=== PATIENT | male | born 1955 | race American Indian/Alaskan Native ===

== ENCOUNTER 2020-10-24 07:37 | Day surgery (SDC) | payer OTHER ==
[~2020-10-24] VITALS: Ht 167.6 cm; Wt 80.8 kg
[~2020-10-24 07:37] MED LIST: ATOR10 PO; Aspir 8181 MG PO; DOXA4 PO; FOLI1 PO; Imdur60 MG PO; METTREX2.5 PO; Norco 5-325 Ta1 EACH PO; ZOLP5 PO; ZYRTEC10 M2 PO
== END 2020-10-24 09:24 | disposition home or self-care (01) ==
LOC: ORSCSDS 07:37
PROVIDERS: Internal Medicine Gastroenterology
PROC: 0DBP8ZX Excision of Rectum, Via Natural or Artificial Opening Endoscopic, Diagnostic (ICD-10-PCS; principal; 2020-10-24 09:00)
DX: Z12.11 Encounter for screening for malignant neoplasm of colon (principal); Z86.010 Personal history of colon polyps; D12.8 Benign neoplasm of rectum; K57.30 Diverticulosis of large intestine without perforation or abscess without bleeding; K64.8 Other hemorrhoids; Z87.891 Personal history of nicotine dependence; Z79.82 Long term (current) use of aspirin; Z79.899 Other long term (current) drug therapy
CPT/HCPCS: 88305; J2704; J7120

== ENCOUNTER 2023-08-26 21:47 | Emergency (ER) | payer OTHER ==
[~2023-08-26] VITALS: Ht 167.6 cm; Wt 81.7 kg
[2023-08-26 21:48] VITALS: BP 113/85
[2023-08-26] MEDS ORDERED: SPIR25 (22:05)
[2023-08-26] MEDS ORDERED: OMEP20ER PO (22:06)
[2023-08-26] MEDS ORDERED: AMLO10 PO (22:07)
[2023-08-26] MEDS ORDERED: FentaNYL Citrate 50 MCG/ML 2 ML Injection ONE (22:14)
[2023-08-26] MEDS ORDERED: FentaNYL Citrate 50 MCG/ML 2 ML Injection IV ONE (22:20)
== END 2023-08-26 23:40 | disposition home or self-care (01) ==
LOC: ER 21:47
DX: K42.9 Umbilical hernia without obstruction or gangrene (principal); F17.200 Nicotine dependence, unspecified, uncomplicated; Z88.0 Allergy status to penicillin; Z88.8 Allergy status to other drugs, medicaments and biological substances; Z79.82 Long term (current) use of aspirin; Z79.899 Other long term (current) drug therapy
CPT/HCPCS: 96374; 99284-25; J3010

== ENCOUNTER 2023-09-18 02:36 | Day surgery (SDC) | payer OTHER ==
[~2023-09-18 02:36] MED LIST changes: +AMLO10 PO; +OMEP20ER PO; +SPIR25
[2023-09-18] MEDS ORDERED: Silver Sulfadiazine 1% Cream 25 APPLIC/25 GM Tube ONE (12:45)
== END 2023-09-18 22:40 | disposition home or self-care (01) ==
LOC: WOUND 02:36
DX: T24.232A Burn of second degree of left lower leg, initial encounter (principal); I10 Essential (primary) hypertension; I25.10 Atherosclerotic heart disease of native coronary artery without angina pectoris; Z87.891 Personal history of nicotine dependence; Z88.0 Allergy status to penicillin; Z88.8 Allergy status to other drugs, medicaments and biological substances; Z91.011 Allergy to milk products
CPT/HCPCS: A9270; G0463

== ENCOUNTER 2023-09-24 02:39 | Day surgery (SDC) | payer OTHER ==
[2023-09-24] MEDS ORDERED: Lidocaine HCl 4% Cream 5 GM ONE (15:30)
== END 2023-09-25 22:49 | disposition home or self-care (01) ==
LOC: WOUND 02:39
DX: T24.232A Burn of second degree of left lower leg, initial encounter (principal); I10 Essential (primary) hypertension; I25.10 Atherosclerotic heart disease of native coronary artery without angina pectoris
CPT/HCPCS: A9270

== ENCOUNTER 2023-10-06 02:00 | Day surgery (SDC) | payer OTHER ==
[2023-10-06] MEDS ORDERED: Lidocaine HCl 4% Cream 5 GM ONE (14:15)
== END 2023-10-06 23:16 | disposition home or self-care (01) ==
LOC: WOUND 02:00
DX: T24.232A Burn of second degree of left lower leg, initial encounter (principal); I10 Essential (primary) hypertension
CPT/HCPCS: A9270

== ENCOUNTER 2023-10-27 04:07 | Day surgery (SDC) | payer OTHER ==
[2023-10-27] MEDS ORDERED: Lidocaine HCl 4% Cream 5 GM ONE (14:16)
[2023-10-29] MEDS ORDERED: Loratadine10 MG PO (13:38)
[2023-10-29] MEDS ORDERED: Vitamin D1000 UNI1 PO (13:38)
[2023-10-29] MEDS ORDERED: C COMPLEX1000 M1 PO (13:38)
[2023-10-29] MEDS ORDERED: Saw Palmetto160 MG PO (13:39)
[2023-10-29] MEDS ORDERED: Vitamin B Comple1 EA PO (13:39)
[2023-10-29] MEDS ORDERED: [UNRECOGNIZED DRUG - OTHER] PO (13:39)
[2023-10-29] MEDS ORDERED: ZINC220 PO (13:39)
== END 2023-10-27 23:22 | disposition home or self-care (01) ==
LOC: WOUND 04:07
DX: I87.312 Chronic venous hypertension (idiopathic) with ulcer of left lower extremity (principal); L97.222 Non-pressure chronic ulcer of left calf with fat layer exposed; I25.10 Atherosclerotic heart disease of native coronary artery without angina pectoris; I10 Essential (primary) hypertension; T24.23 Burn of second degree of lower leg; I87.2 Venous insufficiency (chronic) (peripheral); I73.9 Peripheral vascular disease, unspecified
CPT/HCPCS: A9270; G0463

== ENCOUNTER 2023-11-04 00:46 | Day surgery (SDC) | payer OTHER ==
[~2023-11-04 00:46] MED LIST changes: +C COMPLEX1000 M1 PO; +Loratadine10 MG PO; +Saw Palmetto160 MG PO; +Vitamin B Comple1 EA PO; +Vitamin D1000 UNI1 PO; +ZINC220 PO; +[UNRECOGNIZED DRUG - OTHER] PO
== END 2023-11-04 23:16 | disposition home or self-care (01) ==
LOC: WOUND 00:46
DX: T24.232D Burn of second degree of left lower leg, subsequent encounter (principal); L97.222 Non-pressure chronic ulcer of left calf with fat layer exposed; I87.312 Chronic venous hypertension (idiopathic) with ulcer of left lower extremity; I10 Essential (primary) hypertension
CPT/HCPCS: G0463

== ENCOUNTER 2023-11-13 01:56 | Day surgery (SDC) | payer OTHER | END 2023-11-13 23:31 | disposition home or self-care (01) | LOC: WOUND 01:56 | DX: T24.002A Burn of unspecified degree of unspecified site of left lower limb, except ankle and foot, initial encounter (principal); L97.929 Non-pressure chronic ulcer of unspecified part of left lower leg with unspecified severity; I87.312 Chronic venous hypertension (idiopathic) with ulcer of left lower extremity; I10 Essential (primary) hypertension; I87.2 Venous insufficiency (chronic) (peripheral); I73.9 Peripheral vascular disease, unspecified; I25.10 Atherosclerotic heart disease of native coronary artery without angina pectoris; X16.XXXA Contact with hot heating appliances, radiators and pipes, initial encounter | CPT/HCPCS: G0463 ==

== ENCOUNTER 2024-09-21 09:25 | Day surgery (SDC) | payer OTHER ==
[~2024-09-21] VITALS: Ht 167.6 cm; Wt 80.0 kg
[2024-09-21] VITALS (9 sets, daily range): BP systolic 92–112; BP diastolic 64–83
[~2024-09-21 09:25] MED LIST changes: +CLOBETASOL EMOL15 G1; +FARXIGA10 MG PO; +METO25ER PO
[2024-09-21] MEDS ORDERED: Heparin Sodium 1000 Units/ML 10ML MDV ONE (10:50)
[2024-09-21] MEDS ORDERED: Verapamil HCL 2.5 MG/ML 2ML Injection ONE (10:50)
[2024-09-21] MEDS ORDERED: Nitroglycerin 2 MG/20 ML BTL ONE (10:51)
[2024-09-21] MEDS ORDERED: NS 1,000 ML IV ONE ×2 (10:51→10:57)
[2024-09-21] MEDS ORDERED: NS 250 ML IV ONE (10:51)
[2024-09-21] MEDS ORDERED: FentaNYL Citrate 50 MCG/ML 2 ML Injection ONE (10:57)
[2024-09-21] MEDS ORDERED: Midazolam HCl 1MG / ML 2ML Vial ONE (10:57)
--- NOTE | 2024-09-21 12:00 | NUR ---
PT ARRIVES TO RECOVERY ROOM WITH R RADIAL TR BAND IN PLACE. NO BLEEDING OR HEMATOMA NOTED. VSS. NADN. CALL LIGHT WITHIN REACH.
--- NOTE | 2024-09-21 14:00 | NUR ---
PT TR BAND FULLY DEFLATED. NO BLEEDING NOTED. VSS. NADN. PT RESTING COMFORTABLY. CALL LIGHT WITHIN REACH.
--- NOTE | 2024-09-21 15:05 | NUR ---
PT VERBALIZES UNDERSTANDING WRITTEN AND VERBAL INSTRUCTIONS. DENIES QUESTIONS OR CONCERNS. VSS. PT DRESSES SELF WITHOUT DIFF. PT TR BAND REMOVED. CLOTH DOT AND SPLINT IN PLACE. NO BLEEDING NOTED. PT IV DC'D. CATH INTACT. PRESSURE DSG APPLIED. PT DC TO HOME VIA WC
== END 2024-09-21 15:05 | disposition home or self-care (01) ==
LOC: MHTC 09:25
DX: I25.85 Chronic coronary microvascular dysfunction (principal); I11.9 Hypertensive heart disease without heart failure; I42.9 Cardiomyopathy, unspecified; J44.9 Chronic obstructive pulmonary disease, unspecified; E78.5 Hyperlipidemia, unspecified; K21.9 Gastro-esophageal reflux disease without esophagitis; Z87.891 Personal history of nicotine dependence; Z88.0 Allergy status to penicillin; Z88.1 Allergy status to other antibiotic agents; Z91.011 Allergy to milk products; Z79.82 Long term (current) use of aspirin; Z79.899 Other long term (current) drug therapy
CPT/HCPCS: 76937; 93458; 99152; 99153; C1769; C1887; C1894; J0461; J1644; J2250; J3010; J7030; J7050; Q9967